=== PATIENT | male | born 1990 | race Caucasian/White ===

== ENCOUNTER 2020-04-22 12:12 | Emergency (ER) | payer OTHER ==
[~2020-04-22 12:12] MED LIST: BACLOFEN 10MG T10 MG PO; NAPROXEN500 MG PO; ZOFRAN8 MG PO
[2020-04-22] MEDS ORDERED: ETODOLAC500 MG PO (13:51)
[2020-04-22] MEDS ORDERED: CYCLOBENZAPRINE10 MG PO (13:51)
== END 2020-04-22 14:00 | disposition home or self-care (01) ==
LOC: FER 12:12
DX: S29.012A Strain of muscle and tendon of back wall of thorax, initial encounter (principal); M51.34 Other intervertebral disc degeneration, thoracic region; E66.9 Obesity, unspecified; Z87.19 Personal history of other diseases of the digestive system; W01.10XA Fall on same level from slipping, tripping and stumbling with subsequent striking against unspecified object, initial encounter; Y92.828 Other wilderness area as the place of occurrence of the external cause
CPT/HCPCS: 72128

== ENCOUNTER 2020-09-12 20:52 | Emergency (ER) | payer OTHER ==
[~2020-09-12 20:52] MED LIST changes: +CYCLOBENZAPRINE10 MG PO; +ETODOLAC500 MG PO
[2020-09-12] MEDS ORDERED: AZITHROMYCIN250 MG PO (21:43)
[2020-09-12] MEDS ORDERED: TESSALON PERLE100 M1 PO (21:43)
[2020-09-12] MEDS ORDERED: PREDNISONE 20MG20 MG PO (21:43)
== END 2020-09-12 21:58 | disposition home or self-care (01) ==
LOC: FER 20:52
DX: J18.9 Pneumonia, unspecified organism (principal)
CPT/HCPCS: 71045

== ENCOUNTER 2020-12-07 12:33 | Emergency (ER) | payer OTHER ==
[~2020-12-07 12:33] MED LIST changes: +AZITHROMYCIN250 MG PO; +PREDNISONE 20MG20 MG PO; +TESSALON PERLE100 M1 PO
== END 2020-12-07 14:18 | disposition home or self-care (01) ==
LOC: FER 12:33
DX: B34.9 Viral infection, unspecified (principal); Z20.822 Contact with and (suspected) exposure to COVID-19
CPT/HCPCS: 99284; U0002